=== PATIENT | female | born 1980 | race African-American/Black ===

== ENCOUNTER 2021-02-26 14:51 | Emergency (ER) | payer OTHER ==
[~2021-02-26] VITALS: Ht 172.7 cm; Wt 146.0 kg
[2021-02-26 15:05] VITALS: BP 140/93
[2021-02-26 16:46] LABS: BASOPHILS % 0.8 % (0.0-2.0); EOSINOPHILS % 0.8 % (0.0-5.0); HEMOGLOBIN. 13.8 g/dL (12.0-16.0); LYMPHOCYTES % 25.4 % (20.0-50.0); MEAN CORPUSCULAR HEMOGLOBIN 31.7 pg (28.0-32.0); MEAN CORPUSCULAR VOLUME 96.3 fL (81.0-99.0); MEAN PLATELET VOLUME 7.3 fl (7.4-10.4); MONOCYTES % 7.1 % (2.0-8.0); NEUTROPHILS % 65.9 % (40.0-76.0); PLATELET 351 x1000/uL (130-400); RED BLOOD CELL COUNT 4.36 mill/uL (4.2-5.4); RED CELL DISTRIBUTION WIDTH 14.6 % (11.6-14.6)
[2021-02-26 17:00] LABS: CHLORIDE 104 mEq/L (98-107)
[2021-02-26 17:04] LABS: HCG SCREEN NEGATIVE
[2021-02-26 17:07] LABS: CLARITY URINE CLOUDY (CLEAR); COLOR URINE DARK YELLOW (YELLOW); KETONES URINE 1+ (NEGATIVE); LEUKOCYTE ESTERASE URINE 2+ (NEGATIVE); NITRITE URINE NEGATIVE (NEGATIVE); OCCULT BLOOD URINE 2+ (NEGATIVE); PROTEIN URINE 1+ (NEGATIVE); SPECIFIC GRAVITY URINE 1.031 (1.005-1.030)
[2021-02-26] MEDS ORDERED: NITR-87 MT (17:35)
== END 2021-02-26 17:58 | disposition home or self-care (01) ==
LOC: ER 14:51
DX: R42 Dizziness and giddiness (principal); N39.0 Urinary tract infection, site not specified; F43.9 Reaction to severe stress, unspecified; Z63.79 Other stressful life events affecting family and household; R03.0 Elevated blood-pressure reading, without diagnosis of hypertension; Z88.0 Allergy status to penicillin
CPT/HCPCS: 36415; 80053; 80185; 81003; 84703; 85025; 93005; 99284